=== PATIENT | male | born 1990 | race Caucasian/White ===

== ENCOUNTER 2023-03-14 18:43 | Emergency (ER) | payer OTHER ==
[2023-03-14 18:54] VITALS: BP 121/83; PULSE 78; RESP 18; TEMP 97.9; O2SAT 97
[2023-03-14] MEDS ORDERED: GlucaGen 1 MG IM ONE (19:09)
[2023-03-14] MEDS ORDERED: GlucaGen 1 MG ONE (19:21)
[2023-03-14] MEDS ORDERED: GlucaGen 1 MG IV ONE (19:31)
--- NOTE | 2023-03-14 20:17 | ERPHSYRPT ---
- History of Present Illness Time Seen by Provider: 03/14/23 18:55 Source: patient Exam Limitations: no limitations Patient Subjective Stated Complaint: Pt states "I have had something stuck in my throat for over 24 hours now. I can usually clear it when it happens but I cannot this one. This has happened several times before." Triage Nursing Assessment: Pt presented alert and oriented X 3, skin pwd. Pt ambulates with an upright steady gait, able to speak in clear full sentenecs. Pt in no apparent respiratory distress. Physician History: Patient is a 32-year-old white male who presents with a recurrence of esophageal food bolus. He has had several such previous episodes he has had an EGD but no dilation was done. Because of no dilation I suspect this may be more of an esophageal dysmotility than an actual stricture. He was eating tacos yesterday when it started Timing/Duration: yesterday Severity: moderate Modifying Factors: Improves With: eating Allergies/Adverse Reactions: No Known Drug Allergies Allergy (Verified 03/14/23 18:54) Home Medications: Serdexmethylphen/Dexmethylphen [Azstarys 26.1 mg-5.2 mg Cap] 1 cap PO DAILY 03/14/23 [History] Hx Tetanus, Diphtheria Vaccination/Date Given: No Hx Influenza Vaccination/Date Given: No Hx Pneumococcal Vaccination/Date Given: No Immunizations Up to Date: No Travel Risk - International Travel Have you traveled outside of the country in past 3 weeks: No - Coronavirus Screening Are you exhibiting any of the following symptoms?: No Close contact with a COVID-19 positive Pt in past 14-21 Days: No - Vaccine Status Have you recieved a Covid-19 vaccination: Yes 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: [employer] - Vaccination Dates Date of 2cond Vaccination (if applicable): 2020 - Review of Systems Constitutional: No Fever, No Chills Eyes: No Symptoms Ears, Nose, & Throat: No Symptoms Respiratory: No Cough, No Dyspnea Cardiac: Chest Pain, No Edema, No Syncope Abdominal/Gastrointestinal: No Abdominal Pain, No Nausea, No Vomiting, No Diarrhea Genitourinary Symptoms: No Dysuria Musculoskeletal: No Back Pain, No Neck Pain Skin: No Rash Neurological: No Dizziness, No Focal Weakness, No Sensory Changes Psychological: No Symptoms Endocrine: No Symptoms All Other Systems: Reviewed and Negative - Past Medical History Pertinent Past Medical History: Yes Other Medical History: esopahgeal strictures - Past Surgical History Past Surgical History: Yes Gastrointestinal: Appendectomy, Cholecystectomy - Social History Smoking Status: Former smoker Exposure to second hand smoke: Yes Drug Use: none Patient Lives Alone: No - Nursing Vital Signs Nursing Vital Signs: Initial Vital Signs Temperature 97.9 F 03/14/23 18:49 Pulse Rate 78 03/14/23 18:49 Respiratory Rate 18 03/14/23 18:49 Blood Pressure 121/83 03/14/23 18:49 O2 Sat by Pulse Oximetry 97 03/14/23 18:49 Pain Scale Pain Intensity 2 - Physical Exam General Appearance: no apparent distress, alert Eye Exam: PERRL/EOMI, eyes nml inspection Ears, Nose, Throat Exam: normal ENT inspection, TMs normal, pharynx normal, moist mucous membranes Neck Exam: normal inspection, non-tender, supple, full range of motion Respiratory Exam: normal breath sounds, lungs clear, No respiratory distress Cardiovascular Exam: regular rate/rhythm, normal heart sounds, normal peripheral pulses Gastrointestinal/Abdomen Exam: soft, normal bowel sounds, No tenderness, No mass Back Exam: normal inspection, normal range of motion, No CVA tenderness, No vertebral tenderness Extremity Exam: normal inspection, normal range of motion, pelvis stable Neurologic Exam: alert, oriented x 3, cooperative, normal mood/affect, nml cerebellar function, nml station & gait, sensation nml, No motor deficits Skin Exam: normal color, warm, dry, No rash Lymphatic Exam: No adenopathy SpO2: 97 - Course Nursing assessment & vital signs reviewed: Yes - Radiology Exams Chest X-ray Interpretation: Interpreted by me, Reviewed by me Ordered Tests: Active Orders 24 hr Category Date Time Status CHEST 2 VIEWS (PA AND LAT) Stat Exams 03/14/23 19:08 Taken Medication Summary Discontinued Medications Generic Name Dose Route Start Last Admin Trade Name Jc PRN Reason Stop Dose Admin Glucagon 1 mg 03/14/23 19:09 03/14/23 19:39 Glucagon 1 Mg/Vial Vial IM 03/14/23 19:10 Not Given STAT ONE Glucagon Confirm 03/14/23 19:21 Glucagon 1 Mg/Vial Vial Administered 03/14/23 19:22 Dose 1 mg .ROUTE .STK-MED ONE Glucagon 1 mg 03/14/23 19:31 03/14/23 19:36 Glucagon 1 Mg/Vial Vial IV 03/14/23 19:32 1 mg STAT ONE Administration - Progress Progress: improved Progress Note: 03/14/23 20:14 After giving glucagon 1 mg IV bolus the food bolus passed. Medical Desision Making - Diagnostic Testing Radiological Interpretation: Interpreted by me - Risk of complications Minimal Risk: Minimal risk of morbidity - Departure Departure Disposition: Home Clinical Impression: Esophageal foreign body Condition: Stable Critical Care Time: No Referrals: RAYMUNDO DE JESUS MD [Primary Care Provider] - Follow up/PCP as directed
--- NOTE | 2023-03-14 22:12 | XRAY ---
Indication: Food bolus caught when eating x 15yrs. Comparison: None PA/lateral chest demonstrates normal heart, lungs, and bony thorax.
== END 2023-03-14 20:28 | disposition home or self-care (01) ==
LOC: ED 18:43
DX: T18.128A Food in esophagus causing other injury, initial encounter (principal); W44.F3XA Food entering into or through a natural orifice, initial encounter; Z79.899 Other long term (current) drug therapy
CPT/HCPCS: 36000; 71046; 96374; 99283; J1610